=== PATIENT | male | born 1985 | race Caucasian/White ===

== ENCOUNTER 2024-08-18 05:44 | Emergency (ER) | payer SELFPAY ==
--- NOTE | ~2024-08-18 | US_ITS ---
Testicular ultrasound with doppler. Indication: Testicular pain. Technique: Real-time sonography the scrotum was performed. Color flow Doppler and Doppler spectral an alysis were performed. Findings: The testes are homogeneous in echotexture bilaterally. There is no evidence of an intrates ticular mass. The right testis measures 3.4 x 1.8 x 2.3 cm and the left 3.5 x 1.7 x 2.0 cm. There is color-flow seen to both testes. Arterial and venous spectral waveforms are seen in both testes. There is no sonographic evidence of torsion. The head of the epididymis is visualized bilaterally and is within normal limits. Impression: Unremarkable exam. No evidence of torsion. Reviewed, dictated and finalized at location . ER [employer] [employer] Impression: Unremarkable exam. No evidence of torsion.
[2024-08-18 05:47] VITALS: BP 162/99; PULSE 100; RESP 18; TEMP 36.6; O2SAT 100
--- NOTE | 2024-08-18 06:06 | ED_ITS ---
HPI - General Adult General Chief complaint: Urogenital-Male <Jesus Cutler MD - Last Filed: 08/18/24 06:51> Stated complaint: feels like i've been kicked in the nuts; months <Jesus Cutler MD - Last Filed: 08/18/24 06:51> Time Seen by Provider: 08/18/24 05:54 <Jesus Cutler MD - Last Filed: 08/18/24 06:51> History of Present Illness HPI narrative: This is a 38-year-old male presenting ED with chief complaint of testicle pain. Patient states that he has been having intermittent testicle pain for 3 years. It is becoming more more common. Tonight he was talking with his and they were discussing having sexual intercourse and he started developed pain in his testicles L > R. patient notes that he has had dysuria urgency and he says that his ejaculate smells like a body. patient has also noted decreased sex drive. He is concerned his testicles are shrinking. <Jesus Cutler MD - Last Filed: 08/18/24 06:51> Related Data Allergies/adverse reactions: Allergies Allergy/AdvReac Type Severity Reaction Status Date / Time No Known Allergies Allergy Verified 08/18/24 07:25 <Jesus Cutler MD - Last Filed: 08/18/24 06:51> [facility] Past Medical History Medical History: Medical History Psoriatic arthritis Morbid obesity <Jesus Cutler MD - Last Filed: 08/18/24 06:51> Exam Narrative: APPEARANCE: No apparent distress. Head: atraumatic. EYES: EOMI, NOSE: Atraumatic NECK: Trachea midline RESPIRATORY: No increased rate of breathing CARDIOVASCULAR: RRR, ABDOMINAL: Non-distended Genital Exam: Testicles have a normal lie, no tenderness, soft without masses, MUSCULOSKELETAl: No obvious deformities NEURO: Alert. Moving 4/4 extremities SKIN:: Warm, dry. Normal color PSYCHIATRIC: Normal affect <Jesus Cutler MD - Last Filed: 08/18/24 06:51> Course Course Emergency Course: Patient informed of lab and imaging results. No torsion. Given foul smelling urine and pain in testicle will give short course of antibiotic. Will give urology follow-up. Recommended supportive underwear as well as scheduled anti-inflammatories. <Manuel Aguirre MD - Last Filed: 08/18/24 08:22> Vital Signs Vital signs: Vital Signs Temperature 97.8 F 08/18/24 05:47 Pulse Rate 100 08/18/24 05:47 Respiratory Rate 18 08/18/24 05:47 Blood Pressure 162/99 H 08/18/24 05:47 Pulse Oximetry 100 08/18/24 05:47 Temperature 97.8 F 08/18/24 05:47 Pulse Rate 100 08/18/24 05:47 Respiratory Rate 18 08/18/24 05:47 Blood Pressure 162/99 H 08/18/24 05:47 Pulse Oximetry 100 08/18/24 05:47 <Jesus Cutler MD - Last Filed: 08/18/24 06:51> Vital Signs Temperature 97.8 F 08/18/24 05:47 Pulse Rate 100 08/18/24 05:47 Respiratory Rate 18 08/18/24 05:47 Blood Pressure 162/99 H 08/18/24 05:47 Pulse Oximetry 100 08/18/24 05:47 Temperature 97.8 F 08/18/24 05:47 Pulse Rate 100 08/18/24 05:47 Respiratory Rate 18 08/18/24 05:47 Blood Pressure 162/99 H 08/18/24 05:47 Pulse Oximetry 100 08/18/24 05:47 <Manuel Aguirre MD - Last Filed: 08/18/24 08:22> Medical Decision Making MDM Narrative Medical decision making narrative: -Course: 38-year-old male presenting with acute on chronic testicle pain as well as urinary symptoms and foul-smelling ejaculate. Patient is monogamous with his 13 years there is no concern for STDs. testicular exam is unremarkable with no significant tenderness. patient signed out to the oncoming physician pending urinalysis and scrotal ultrasound -DDX includes but is not limited to: Orchitis epididymitis torsion UTI, seminal vesiculitis -Co-morbidities complicating care: morbid obesity, psoriatic arthritis <Jesus Cutler MD - Last Filed: 08/18/24 06:51> Vital Signs Vital Signs: Vital Signs Temperature 97.8 F 08/18/24 05:47 Pulse Rate 100 08/18/24 05:47 Respiratory Rate 18 08/18/24 05:47 Blood Pressure 162/99 H 08/18/24 05:47 Pulse Oximetry 100 08/18/24 05:47 Temperature 97.8 F 08/18/24 05:47 Pulse Rate 100 08/18/24 05:47 Respiratory Rate 18 08/18/24 05:47 Blood Pressure 162/99 H 08/18/24 05:47 Pulse Oximetry 100 08/18/24 05:47 <Jesus Cutler MD - Last Filed: 08/18/24 06:51> Vital Signs Temperature 97.8 F 08/18/24 05:47 Pulse Rate 100 08/18/24 05:47 Respiratory Rate 18 08/18/24 05:47 Blood Pressure 162/99 H 08/18/24 05:47 Pulse Oximetry 100 08/18/24 05:47 Temperature 97.8 F 08/18/24 05:47 Pulse Rate 100 08/18/24 05:47 Respiratory Rate 18 08/18/24 05:47 Blood Pressure 162/99 H 08/18/24 05:47 Pulse Oximetry 100 08/18/24 05:47 <Manuel Aguirre MD - Last Filed: 08/18/24 08:22> Lab Data Labs: Lab Results 08/18/24 Range/Units 06:09 Urine Color Yellow (Yellow) Urine Appearance Cloudy H (Clear) Urine pH 6.5 (5.0-9.0) Ur Specific [place] 1.020 (1.001-1.035) Urine Protein Negative (Negative) mg/dL Urine Glucose (UA) Negative (Negative) mg/dL Urine Ketones Negative (Negative) mg/dL Ur Blood (Man) Negative (Negative) Urine Nitrate Negative (Negative) Urine Bilirubin Negative (Negative) Urine Urobilinogen 0.2 (<2.0) mg/dL Leukocyte Esterase Rfl Negative (Negative) YANELY/UL Urine RBC 0-2 (0-2) /hpf Urine WBC 0-5 (0-3) /hpf Ur Squamous Epith Cells None seen (Few) /hpf Urine Bacteria None seen /hpf Urine Casts 0-2 <Jesus Cutler MD - Last Filed: 08/18/24 06:51> Lab Results 08/18/24 Range/Units 06:09 Urine Color Yellow (Yellow) Urine Appearance Cloudy H (Clear) Urine pH 6.5 (5.0-9.0) Ur Specific [place] 1.020 (1.001-1.035) Urine Protein Negative (Negative) mg/dL Urine Glucose (UA) Negative (Negative) mg/dL Urine Ketones Negative (Negative) mg/dL Ur Blood (Man) Negative (Negative) Urine Nitrate Negative (Negative) Urine Bilirubin Negative (Negative) Urine Urobilinogen 0.2 (<2.0) mg/dL Leukocyte Esterase Rfl Negative (Negative) YANELY/UL Urine RBC 0-2 (0-2) /hpf Urine WBC 0-5 (0-3) /hpf Ur Squamous Epith Cells None seen (Few) /hpf Urine Bacteria None seen /hpf Urine Casts 0-2 <Manuel Aguirre MD - Last Filed: 08/18/24 08:22> Discharge Plan Discharge Clinical Impression: Testicle pain <Jesus Cutler MD - Last Filed: 08/18/24 06:51> Patient Disposition: Home, Self-Care <Jesus Cutler MD - Last Filed: 08/18/24 06:51> Condition: Stable <Jesus Cutler MD - Last Filed: 08/18/24 06:51> Instructions: Testicle Pain (ED) <Jesus Cutler MD - Last Filed: 08/18/24 06:51> Additional Instructions: Return to the ER if you have worsening pain, you develop fever over 101F or you have additional concerns. <Jesus Cutler MD - Last Filed: 08/18/24 06:51> Patient Language: [place] <Jesus Cutler MD - Last Filed: 08/18/24 06:51> Prescriptions: New naproxen 375 mg tablet 375 mg PO BID Qty: 14 0RF ciprofloxacin HCl 500 mg tablet 500 mg PO Q12H Qty: 14 0RF <Jesus Cutler MD - Last Filed: 08/18/24 06:51> Follow-up/Referrals: Benjie Garcia MD [Physician] - 1 Week UNKNOWN,DOCTOR [Primary Care Provider] - <Jesus Cutler MD - Last Filed: 08/18/24 06:51>
[2024-08-18] MEDS: IBUPROFEN 400 MG TABLET 800 MG PO (06:21)
[2024-08-18] MEDS: ACETAMINOPHEN 500 MG TABLET 1000 MG PO (06:22)
[2024-08-18 07:06] LABS: Add Urine Microscopic? YES; Appearance Urine Cloudy (Clear); Bacteria Urine None Seen /hpf; Bilirubin Urine Negative (Negative); Blood Urine Negative (Negative); Color Urine Yellow (Yellow); Glucose Urine UA Negative (Negative); Ketones Urine Negative (Negative); Leukocyte Esterase Ur Negative LEU/UL (Negative); Nitrate Urine Negative (Negative); Non Pathogenic Casts 0-2; Protein Urine Negative (Negative); RBC Urine 0-2 /hpf (0-2); Squamous Epithelial Cell Urine None Seen /hpf (Few); Urobilinogen Urine 0.2 mg/dL (<2.0); WBC Urine 0-5 /hpf (0-3); pH Urine 6.5 (5.0-9.0)
== END 2024-08-18 08:51 | disposition home or self-care (01) ==
PROVIDERS: Emergency Medicine; Emergency Provider Emergency Medicine
DX: N50.812 Left testicular pain (principal); N50.811 Right testicular pain; L40.50 Arthropathic psoriasis, unspecified; E66.01 Morbid (severe) obesity due to excess calories; Z68.44 Body mass index [BMI] 60.0-69.9, adult
CPT/HCPCS: 76870; 81001; 93976; 99284; A9270